=== PATIENT | male | born 1990 | race Two or more races ===

== ENCOUNTER 2019-01-22 01:31 | Emergency (ER) | payer OTHER ==
[~2019-01-22] VITALS: Ht 172.7 cm; Wt 81.8 kg
[2019-01-22 01:32] VITALS: BP 130/68
[2019-01-22] MEDS ORDERED: BIKT1TAB PO (01:44)
[2019-01-22] MEDS ORDERED: FLON27.5 NARES (06:48)
== END 2019-01-22 06:58 | disposition home or self-care (01) ==
LOC: M ED 01:31
DX: J01.90 Acute sinusitis, unspecified (principal); J02.9 Acute pharyngitis, unspecified; J06.9 Acute upper respiratory infection, unspecified; Z79.899 Other long term (current) drug therapy
CPT/HCPCS: 87880; 99284; G0463